=== PATIENT | male | born 1990 | race Caucasian/White ===

== ENCOUNTER 2018-08-07 21:38 | Emergency (ER) | payer SELFPAY ==
[~2018-08-07] VITALS: Ht 152.4 cm; Wt 58.9 kg
[2018-08-07 22:05] VITALS: BP 122/72
== END 2018-08-08 01:34 | disposition left against medical advice (07) ==
LOC: ER 21:38
DX: R42 Dizziness and giddiness (principal); Z53.21 Procedure and treatment not carried out due to patient leaving prior to being seen by health care provider